=== PATIENT | female | born 1985 | race Caucasian/White ===

== ENCOUNTER 2019-05-03 17:59 | Emergency (ER) | payer MEDICAID ==
[~2019-05-03] VITALS: Ht 157.5 cm; Wt 74.4 kg
[2019-05-03 18:03] VITALS: Ht 157.5 cm; Wt 74.4 kg
[2019-05-03 23:15] VITALS: BP 169/90
== END 2019-05-03 23:15 | disposition home or self-care (01) ==
LOC: ED 17:59
DX: O99.341 Other mental disorders complicating pregnancy, first trimester (principal); F41.9 Anxiety disorder, unspecified; Z3A.00 Weeks of gestation of pregnancy not specified